=== PATIENT | female | born 1945 | race Two or more races ===

== ENCOUNTER 2018-05-25 07:27 | Outpatient (CLI) | payer OTHER ==
[~2018-05-25] VITALS: Ht 167.6 cm; Wt 74.4 kg
== END 2018-05-25 07:40 | disposition home or self-care (01) ==
LOC: OFIC 805 07:27
DX: J31.0 Chronic rhinitis (principal); H92.01 Otalgia, right ear; R51 Headache; R49.8 Other voice and resonance disorders

== ENCOUNTER 2018-07-11 12:39 | Outpatient (CLI) | payer OTHER ==
[~2018-07-11] VITALS: Ht 152.4 cm; Wt 74.4 kg
== END 2018-07-11 13:00 | disposition home or self-care (01) ==
LOC: OFIC 805 12:39
DX: H92.02 Otalgia, left ear (principal); G50.1 Atypical facial pain; R49.8 Other voice and resonance disorders

== ENCOUNTER 2018-07-11 14:19 | Outpatient (CLI) | payer OTHER | END 2018-07-11 14:26 | disposition home or self-care (01) | LOC: SONOGRAMA 14:19 | DX: E04.1 Nontoxic single thyroid nodule (principal) ==

== ENCOUNTER 2018-07-14 15:24 | Outpatient (CLI) | payer OTHER | END 2018-07-14 15:40 | disposition home or self-care (01) | LOC: OFIC 805 15:24 | DX: R49.8 Other voice and resonance disorders (principal); K21.0 Gastro-esophageal reflux disease with esophagitis ==